=== PATIENT | female | born 1945 | race Caucasian/White ===

== ENCOUNTER 2016-06-01 08:52 | Outpatient (CLI) | payer MEDICARE ==
[2016-06-01 09:25] LABS: Cardiac Risk 3.2 (Less than 4.5)
== END 2016-06-01 08:53 | disposition home or self-care (01) ==
LOC: MADLAB 08:52
PROVIDERS: ATTEND Internal Medicine Cardiovascular Disease
DX: Z51.81 Encounter for therapeutic drug level monitoring (principal); Z79.899 Other long term (current) drug therapy
CPT/HCPCS: 36415; 80061; 84450; 84460